=== PATIENT | male | born 1950 | race Caucasian/White ===

== ENCOUNTER → 2017-12-13 09:02 | Outpatient (CLI) | payer MEDICARE, BC ==
[2017-12-13 10:16] LABS: LDL-HDL RATIO 3.4 ratio (1.5-3.5)
[2017-12-13 10:26] LABS: SCREENING PSA (YEARLY) 4.35 ng/mL (0.00-4.00)
== END | disposition home or self-care (01) ==
LOC: D.LAB 09:02
PROVIDERS: Family Medicine
DX: E78.5 Hyperlipidemia, unspecified (principal); Z12.5 Encounter for screening for malignant neoplasm of prostate

== ENCOUNTER 2018-01-31 05:20 | Day surgery (SDC) | payer MEDICARE, BC ==
[2018-01-30 10:30] LABS: HEMATOCRIT 48.3 % (42.0-54.0); HEMOGLOBIN 16.9 g/dL (13.5-17.5); MCH 32.4 pg (26.0-34.0); MCV 92.5 fL (80.0-100.0); MEAN PLATELET VOLUME 9.6 fL (7.4-10.4); RBC 5.22 10x6/uL (4.20-6.10); RDW 12.6 % (11.5-14.5); WBC 7.2 10x3/uL (4.8-10.8)
[2018-01-30 10:48] LABS: ANION GAP 12.6 mmol/L (8-16); CALCIUM 9.1 mg/dL (8.5-10.1); CREATININE - SERUM 1.2 mg/dL (0.6-1.3); POTASSIUM - SERUM 4.6 mmol/L (3.5-5.1)
[~2018-01-31] VITALS: Ht 172.7 cm; Wt 88.0 kg
--- NOTE | ~2018-01-31 | OP ---
PATIENT NAME: JACOB CHEN MEDICAL RECORD: [id number] :50 [facility] [place] [facility] DATE: SURGEON: YEVGENIY DIAL MD DATE OF OPERATION: 01/31/2018 SURGEON: Yevgeniy Dial MD ANESTHESIA: MAC by Sg Woodruff MD PREOPERATIVE DIAGNOSIS: Elevated PSA of 4.35. PROCEDURE: Transrectal ultrasound and prostate biopsy. FINDINGS: A 20 gram prostate, no hypoechoic areas. ESTIMATED BLOOD LOSS: None. CLINICAL HISTORY: This is a 67-year-old male, who was found to have an elevated PSA of 4.35. He has a positive family history of prostate cancer in his father. He is not allergic to any medications. He took perioperative antibiotics orally starting from 2 days ago. He also had a fleet enema last night. He comes today for a transrectal ultrasound and prostate biopsy. DESCRIPTION OF PROCEDURE: The patient was given IV sedation. He was placed in the lithotomy position. The transrectal ultrasound probe was introduced and prostate size measurements were obtained. The prostate size was small at 20 grams. No hypoechoic areas were seen within the prostate. Sextant biopsies were obtained with at least 3 specimens from each sextant. Once the specimens were all obtained, the procedure was terminated. The patient was awakened and brought back to the preoperative holding area. He will be going home today. I will see him in followup next week to review the pathology results with him. TRANSINT:[id number] Voice Confirmation ID: [id number] DOCUMENT ID: [id number] YEVGENIY DIAL MD at 0903 CC: [id number] DICTATION DATE: 01/31/18 0805 [facility] TECHNICIAN: 01/31/18 1150 [facility] 01/31/18 [place] [id number] [place] [id number]
[~2018-01-31 05:20] MED LIST: ASPIRIN EC81 M1 PO; PROBIOTIC BLEN1 EACH PO; ZESTORETIC 10/11 TAB PO; ZOCOR10 MG PO
[2018-01-31 06:21] VITALS: Ht 172.7 cm; Wt 88.0 kg
== END 2018-01-31 09:35 | disposition home or self-care (01) ==
LOC: D.OPS 05:20 → D.PAN 07:30 → D.OPS 07:30
PROVIDERS: Anesthesiology
DX: C61 Malignant neoplasm of prostate (principal); Z01.812 Encounter for preprocedural laboratory examination

== ENCOUNTER → 2018-02-09 08:07 | Outpatient (CLI) | payer MEDICARE, BC ==
[2018-01-31 06:21] VITALS: BMI 29.5
== END | disposition home or self-care (01) ==
LOC: D.NM 08:07
DX: C61 Malignant neoplasm of prostate (principal)

== ENCOUNTER → 2018-03-22 08:51 | Outpatient (CLI) | payer MEDICARE, BC ==
[2018-01-31 06:21] VITALS: BMI 29.5
[2018-03-22 09:46] LABS: CHOL - HDL RATIO 3.9 ratio (2.3-4.9); LDL-HDL RATIO 2.4 ratio (1.5-3.5)
== END | disposition home or self-care (01) ==
LOC: D.LAB 08:51
PROVIDERS: Family Medicine
DX: E78.5 Hyperlipidemia, unspecified (principal)

== ENCOUNTER → 2018-09-24 09:24 | Outpatient (CLI) | payer MEDICARE, BC ==
[2018-01-31 06:21] VITALS: BMI 29.5
[2018-09-24 10:02] LABS: ANION GAP 13.8 mmol/L (8-16); CALCIUM 9.3 mg/dL (8.5-10.1); CARBON DIOXIDE 27.6 mmol/L (21.0-32.0); CHOL - HDL RATIO 4.1 ratio (2.3-4.9); CREATININE - SERUM 1.1 mg/dL (0.6-1.3); LDL-HDL RATIO 2.3 ratio (1.5-3.5); POTASSIUM - SERUM 4.4 mmol/L (3.5-5.1)
== END | disposition home or self-care (01) ==
LOC: D.LAB 09:24
PROVIDERS: Family Medicine
DX: E78.5 Hyperlipidemia, unspecified (principal); I10 Essential (primary) hypertension

== ENCOUNTER → 2019-04-05 08:48 | Outpatient (CLI) | payer MEDICARE, BC ==
[2018-01-31 06:21] VITALS: BMI 29.5
== END | disposition home or self-care (01) ==
LOC: D.LAB 08:48
PROVIDERS: ATTEND Family Medicine
DX: R73.9 Hyperglycemia, unspecified (principal)